=== PATIENT | female | born 1990 ===

== ENCOUNTER 2018-02-27 12:53 | Emergency (ER) | payer SELFPAY ==
[2018-02-27 13:50] VITALS: RESP 18; TEMP 97.7; O2SAT 100
--- NOTE | 2018-02-27 14:13 | ED PDOC ---
HPI: Female Pain Time Seen by Provider: 02/27/18 13:55 Chief Complaint (Nursing): Female Genitourinary Chief Complaint (Provider): Vaginal spotting History Per: Patient History/Exam Limitations: no limitations Current Symptoms Are (Timing): Still Present Quality Of Discomfort: "Pain" Additional History Per: Patient Additional Complaint(s): 28yo female, EGA of 17weeks, presents to ED with complaints of left lower quadrant abdominal pain and vaginal spotting since this morning. She also reports since last night, she has not "felt the baby move.' She has associated dysuria but denies any fever, chills, vomiting or diarrhea. She offers no other medical complaints. PMD: [facility] Abnormal Vaginal Bleeding: Yes Past Medical History Reviewed: Historical Data, Nursing Documentation, Vital Signs Vital Signs: Last Vital Signs Temp 97.7 F 02/27/18 13:49 Pulse 84 02/27/18 13:49 Resp 18 02/27/18 13:49 BP 108/66 02/27/18 13:49 Pulse Ox 100 02/27/18 13:49 - Medical History PMH: No Chronic Diseases - Surgical History Surgical History: No Surg Hx - Family History Family History: States: No Known Family Hx - Social History Current smoker - smoking cessation education provided: No Alcohol: None Drugs: Denies - Allergies Allergies/Adverse Reactions: Allergies Allergy/AdvReac Type Severity Reaction Status Date / Time No Known Allergies Allergy Verified 02/27/18 13:49 Review of Systems ROS Statement: Except As Marked, All Systems Reviewed And Found Negative Constitutional: Negative for: Fever, Chills Gastrointestinal: Positive for: Abdominal Pain. Negative for: Nausea, Vomiting Genitourinary Female: Positive for: Dysuria, Vaginal Bleeding (spotting) Physical Exam - Reviewed Nursing Documentation Reviewed: Yes Vital Signs Reviewed: Yes - Physical Exam Appears: Positive for: Non-toxic, No Acute Distress Head Exam: Positive for: ATRAUMATIC, NORMAL INSPECTION, NORMOCEPHALIC Skin: Positive for: Normal Color Eye Exam: Positive for: Normal appearance Neck: Positive for: Supple Cardiovascular/Chest: Positive for: Regular Rate, Rhythm Respiratory: Positive for: Normal Breath Sounds Gastrointestinal/Abdominal: Positive for: Soft, Tenderness (mild left lower quadrant tenderness), Other (fundus palpated 2 finger breadths below the umbilicus.) Back: Positive for: Normal Inspection. Negative for: L CVA Tenderness, R CVA Tenderness Neurologic/Psych: Positive for: Alert, Oriented. Negative for: Motor/Sensory Deficits - Laboratory Results Result Diagrams: 02/27/18 14:50 02/27/18 14:50 - ECG O2 Sat by Pulse Oximetry: 100 (RA) Pulse Ox Interpretation: Normal Medical Decision Making Medical Decision Making: Impression: Vaginal spotting in Plan: -- Labs -- Urinalysis -- US OB Scribe Attestation: Documented by Tracey Lucas, acting as a scribe for Valentin Rogers MD. Provider Attestation: All medical record entries made by the Scribe were at my direction and personally dictated by me. I have reviewed the chart and agree that the record accurately reflects my personal performance of the history, physical exam, medical decision making, and the department course for this patient. I have also personally directed, reviewed, and agree with the discharge instructions and disposition. Disposition - Clinical Impression Clinical Impression: Threatened miscarriage - Patient ED Disposition Is Patient to be Admitted: No Counseled Patient/Family Regarding: Studies Performed, Diagnosis, Need For Followup - Disposition [facility]errals[facility]Outside] Disposition: Routine/Home Disposition Time: 16:45 Condition: FAIR Instructions: Threatened Miscarriage Forms: [facility] (Kyrgyz) Print Language: [place]
[2018-02-27 14:58] LABS: BASO % 0.3 % (0.0-2.0); EOS # 0.3 K/uL (0.0-0.7); EOS % 2.4 % (0.0-4.0); HEMOGLOBIN 11.8 g/dL (12.0-16.0); LYMPH # 2.4 K/uL (1.0-4.3); LYMPH % 17.2 % (20.0-40.0); MEAN CELL VOLUME 87.5 fl (81.0-99.0); MEAN CORPUSCULAR HEMOGLOBIN 30.5 pg (27.0-31.0); MEAN CORPUSCULAR HGB CONC 34.9 g/dL (33.0-37.0); MEAN PLATELET VOLUME 8.4 fl (7.2-11.7); MONO # 0.8 K/uL (0.0-0.8); NEUT # 10.4 K/uL (1.8-7.0); NEUT % 74.1 % (50.0-75.0); NRBC % 0.1 % (0.0-0.0); RBC 3.87 Mil/uL (3.80-5.20); RED CELL DISTRIBUTION WIDTH 13.6 % (11.5-14.5)
[2018-02-27 15:08] LABS: ALB/GLOB RATIO 1.1 (1.0-2.1); ALBUMIN 3.7 g/dL (3.5-5.0); ALT/SGPT 42 U/L (9-52); AST/SGOT 30 U/L (14-36); BLOOD UREA NITROGEN 6 mg/dl (7-17); CALCIUM 8.9 mg/dL (8.4-10.2); GFR AFRICAN-AMERICAN > 60; GFR NON-AFRICAN AMERICAN > 60
--- NOTE | 2018-02-27 16:43 | US ---
PROCEDURE: Second trimester ultrasound HISTORY: left sided pain, vag bleeding COMPARISON: None available. TECHNIQUE: Standard protocol for this study/examination. FINDINGS: Cephalic presentation. Fundal Placenta. No evidence of abruption or previa Gestational age derived from LMP 17 weeks 1 day. JO-ANN 08/06/2018. Gestational age derived from the following biometric parameters 17 weeks 5 days. JO-ANN 08/02/2018. Biparietal diameter 4.06 cm Head circumference 15.26 cm Abdominal circumference 11.66 cm Femur length 2.22 cm Estimated weight 184.9 g Calculated cardiac rate 145 beats per min. Closed cervix measuring 3.40 cm IMPRESSION: 17 weeks 5 days live intrauterine gestation. Gestational concordance documented. No acute findings identified open
[2018-02-27 19:22] VITALS: BP 110/69; PULSE 78
== END 2018-02-27 17:30 | disposition home or self-care (01) ==
LOC: H.ER 12:53
DX: O20.0 Threatened abortion (principal); Z36.9 Encounter for antenatal screening, unspecified; Z3A.17 17 weeks gestation of pregnancy

== ENCOUNTER 2018-08-10 22:01 | Emergency (ER) | payer SELFPAY ==
[2018-08-11 05:30] VITALS: BP 136/117; PULSE 73
--- NOTE | 2018-08-11 09:13 | OBHP ---
Datetime: 08/10/2018 23:27 IP Adm Impression: Term, intrauterine IP Admit Plan: Observation/Evaluation; Discharge home Admit Comment, IP Provider: 28 y/o at 40.4 w/JO-ANN 08/06/2018, LMP 10/30/2017 is here c/o some dr ipping of fluid since 730am this morning. She states she had an ultrasound today and was told everyth ing was ok but if fluid loss continued to come to ED. Dwaine vb, ctx, and endorses +FM. Denies f/c/n/v /d. PNP at [facility]. OBGYNhx: had vb @ about 34 wks PMH: Denies Allergies: Denies Meds: PNV Famhx: mother- heart valve problems Sochx: Denies EtoH, cigarette or elicit drug use Surghx: Denies PE: A _ O x 3 Cardio: s1s2 Lungs: cta b/l Abd: Gravid, BS+, nontender Pelvic: sterile speculum- no fluid noted; fingertip dilated Ext: calves nontender A/P: 28 y/o at 40.4 here c/o some dripping of fluid since 730am this morning. -ROM was ruled out -Will return tomorrow for schduled induction -Labor precautions given -Patient seen and examined with Dr. Sunshine -Mikayla Schmitt, PGY-1 Addendum: I saw and examined patient at presentation. No evidence of rupture of membranes at this time. HOME 7-8 on bedside ultrasound. heart tracing category 1. Patient scheduled for induction of labor t omorrow. Discussed plan with patient and all patient questions answered via pricing specialist. Patient disch arged home and will return to labor and delivery tomorrow for induction of labor as already scheduled . Bita Extremities - PN: Normal Abdomen - PN: Normal Lungs - PN: Normal Heart - PN: Normal HEENT - PN: Normal General - PN: Normal Gestation - Est Wks by US: 40.4 Pool Provider: Positive IP Hx Assessment: The History has been Reviewed and is Current Vital Signs Provider: Reviewed IP Chief Complaint: Maternal discomfort NICHD Variability Prov Fetus A: Moderate 6-25bpm NICHD Accel Fetus A IP Provider: [id number] FHR Category Provider Fetus A: Category I NICHD Decel Fetus A IP Provider: None
== END 2018-08-10 23:15 | disposition home or self-care (01) ==
LOC: H.EROB2 22:01
DX: O34.63 Maternal care for abnormality of vagina, third trimester (principal); N89.8 Other specified noninflammatory disorders of vagina; Z3A.40 40 weeks gestation of pregnancy; O48.0 Post-term pregnancy

== ENCOUNTER 2018-08-11 19:55 | Inpatient (IN) | payer MEDICAID, SELFPAY ==
[2018-08-11 20:57] VITALS: BMI 25.0
[2018-08-11] MEDS ORDERED: Lactated Ringer's 1,000 ML IV ONE ×2 (21:31→21:32)
[2018-08-11 21:36] LABS: BASO % 0.3 % (0.0-2.0); EOS # 0.5 K/uL (0.0-0.7); HEMOGLOBIN 12.1 g/dL (12.0-16.0); LYMPH # 2.1 K/uL (1.0-4.3); LYMPH % 15.5 % (20.0-40.0); MEAN CELL VOLUME 85.7 fl (81.0-99.0); MEAN CORPUSCULAR HEMOGLOBIN 27.6 pg (27.0-31.0); MEAN CORPUSCULAR HGB CONC 32.3 g/dL (33.0-37.0); MEAN PLATELET VOLUME 8.8 fl (7.2-11.7); MONO # 1.2 K/uL (0.0-0.8); MONO % 9.1 % (0.0-10.0); NEUT # 9.5 K/uL (1.8-7.0); NEUT % 71.1 % (50.0-75.0); RBC 4.38 Mil/uL (3.80-5.20); RED CELL DISTRIBUTION WIDTH 14.3 % (11.5-14.5); WHITE BLOOD COUNT 13.3 K/uL (4.8-10.8)
--- NOTE | 2018-08-12 01:35 | OBADHP ---
Datetime: 08/11/2018 21:13 Admit Comment, IP Provider: 28 y/o @40.5 wks w/JO-ANN 07/27/2018 _ LMP 10/30/2017 here for inductio n of labor due to low HOME. Patient endorses +FM, but denied any vb, ctx, loss of fluid, f/c/n/v/ _ d ysuria. OBGYNHX: 1 , 12 yrs ago PMH: denied Allergies: denies Meds: PNV Sochx: denies EtOH, Cigarette or elicit drug use Surghx: denies ROS: 12 points reviewed _ neg unless othwerwise mentioned in HPI VS: stable Gen: well appearing female, no grimacing, no acute distress Cardio: s1s2, RRR Lungs: cta b/l Abd: gravid, BS+, nontender Ext: nonedematous A/P: 28 y/o @40.5 wks w/JO-ANN 07/27/2018 here for induction of labor. -Admit with initiation of induction protocol Patient seen and examined with Dr. Trinidad -Mikayla Schmitt, , PGY-[address] Trinidad: I Have evalauted the patient independently and I agree with the above Abdomen - PN: Normal Back - PN: Normal Lungs - PN: Normal Heart - PN: Normal IP Hx Assessment: The History has been Reviewed and is Current Vital Signs Provider: Reviewed IP Adm Impression: Term, intrauterine IP Admit Plan: Admit to unit; Initiate labor induction protocol Datetime: 08/10/2018 23:27 Extremities - PN: Normal HEENT - PN: Normal General - PN: Normal Gestation - Est Wks by US: 40.4 Pool Provider: Positive IP Chief Complaint: Maternal discomfort NICHD Variability Prov Fetus A: Moderate 6-25bpm NICHD Accel Fetus A IP Provider: [id number] FHR Category Provider Fetus A: Category I NICHD Decel Fetus A IP Provider: None
[2018-08-12] MEDS ORDERED: Fentanyl/Bupivacaine HCl 250 ML EPI ONE (09:29)
[2018-08-12] MEDS ORDERED: Oxytocin 30 UNIT 30 UNITS/500 ML BAG IV ONE ×2 (13:07→18:34)
[2018-08-12] MEDS ORDERED: Lidocaine 1% Inj (20ml) ONE (13:08)
[2018-08-12] MEDS ORDERED: Oxycodone/Acetaminophen 5/325 mg Tab PO PRN ×2 (18:34→21:04)
[2018-08-12] MEDS ORDERED: OXYTOCIN/0.9 % NS 20 UNIT/1,000 ML BAG IV ONE (18:34)
[2018-08-12] MEDS ORDERED: Benzocaine/Menthol SPRAY TOP PRN ×2 (18:34→21:04)
--- NOTE | 2018-08-12 18:53 | OBDS ---
DELIVERY PERSONNEL Delivery Doctor: Anson Portillo MD Photo Lab Technician: Zo Galvan RN Resident: MD pilar MATERNAL INFORMATION Delivery Anesthesia: Epidural Medications in Delivery: pitocin Estimated Blood Loss (ml): 200 Placenta Cultured: No Maternal Complications: None Provider Comments: Delivered live baby girl at 6:26 PM the baby was bulb suctioned on the perineum a nd transferred maternal chest. The cord was clamped and cut 3 vessels noted cord blood was obtained a nd sent to lab. The placenta was delivered at 6:28 PM intact, the estimated blood loss was 100 mL. Th ere were no vaginal lacerations the mother tolerated the procedure well the baby went to the well-bab nursery with Apgars of 9 and 9 LABOR SUMMARY EDC: 08/06/2018 00:00 No. Babies in Womb: 1 Attempted: No Labor Anesthesia: Epidural LABOR INFORMATION Reason for Induction: Not Applicable Onset of Labor: 08/12/2018 04:00 Complete Dilatation: 08/12/2018 18:00 Cervical Ripening Agents: Cervidil (Annotations: Cervidil inserted by Dr. Schmitt and Dr. Alatorre ) Oxytocin: Induction Group B Beta Strep: Negative Antibiotics # of Doses: 0 Steroids Given: None Reason Steroids Not Administered: Not Applicable Other Reason Not Administered: Nopt required MEMBRANES Membranes Rupture Method: Spontaneous Rupture of Membranes: 08/12/2018 09:05 Length of Rupture (hrs): 9.35 Amniotic Fluid Color: Clear Amniotic Fluid Amount: Small Amniotic Fluid Odor: Normal STAGES OF LABOR Stage 1 hrs: 14 Stage 1 min: 0 Stage 2 hrs: 0 Stage 2 min: 26 Stage 3 hrs: 0 Stage 3 min: 2 Total Time in Labor hrs: 14 Total Time in Labor min: 28 VAGINAL DELIVERY Episiotomy: None Laceration Extension: N/A Laceration Type: None Laceration Repair: No Initial Vag Sponge Count: 5 Final Vag Sponge Count: 5 Initial Vag Sharps Count: 0 Final Vag Sharps Count: 0 Sponge Count Correct: Yes Sharps Count Correct: N/A BABY A INFORMATION Infant Delivery Date/Time: 08/12/2018 18:26 Method of Delivery: Vaginal Born in Route : No : N/A Forceps: N/A Vacuum Extraction: N/A Shoulder Dystocia : Yes SHOULDER DYSTOCIA BABY A Infant Delivery Date/Time: 08/12/2018 18:26 PRESENTATION/POSITION BABY A Presentation: Cephalic Cephalic Presentation: Vertex Vertex Position: Left Occipital Anterior Breech Presentation: N/A PLACENTA INFORMATION BABY A Placenta Delivery Time : 08/12/2018 18:28 Placenta Method of Delivery: Spontaneous Placenta Status: Delivered SCORES BABY A Heart Rate 1 min: >100 bpm Resp Effort 1 min: Good Cry Reflex Irritability 1 min: Cough or Sneeze or Pulls Away Muscle Tone 1 min: Active Motion Color 1 min: Body Black, Extremities Blue Resuscitation Effort 1 min: N/A SCORE 1 MIN: 9 Heart Rate 5 min: >100 bpm Resp Effort 5 min: Good Cry Reflex Irritability 5 min: Cough or Sneeze or Pulls Away Muscle Tone 5 min: Active Motion Color 5 min: Body Black, Extremities Blue Resuscitation Effort 5 min: N/A SCORE 5 MIN: 9 INFANT INFORMATION BABY A Gestational Age at Delivery: 40.0 Gestational Status: Term Outcome : Liveborn Infant Condition : Stable Sex: Female IDENTIFICATION/MEDS BABY A ID Band Number: [id number] ID Band Location: Right Leg; Right Arm WEIGHT/LENGTH BABY A Infant Birthweight (gms): 3510 Infant Weight (lb): 7 Infant Weight (oz): 12 CORD INFORMATION BABY A No. Cord Vessels: 3 Nuchal Cord : N/A Cord Blood Taken: No Suction: Mouth; Nose ASSESSMENT BABY A Complications: None Physical Findings at Delivery: Within Normal Limits Respirations: Appears Normal Online Marketing Specialist/ALS Called : No Care By: Dr Rogel Transferred To: Remains with Mother
[2018-08-13 09:34] LABS: BASO % 0.2 % (0.0-2.0); EOS # 0.1 K/uL (0.0-0.7); EOS % 0.3 % (0.0-4.0); HEMOGLOBIN 11.4 g/dL (12.0-16.0); LYMPH # 1.9 K/uL (1.0-4.3); LYMPH % 10.1 % (20.0-40.0); MEAN CELL VOLUME 85.5 fl (81.0-99.0); MEAN CORPUSCULAR HEMOGLOBIN 27.8 pg (27.0-31.0); MEAN CORPUSCULAR HGB CONC 32.5 g/dL (33.0-37.0); MEAN PLATELET VOLUME 9.1 fl (7.2-11.7); MONO # 1.2 K/uL (0.0-0.8); MONO % 6.5 % (0.0-10.0); NEUT # 15.6 K/uL (1.8-7.0); NEUT % 82.9 % (50.0-75.0); RBC 4.09 Mil/uL (3.80-5.20); RED CELL DISTRIBUTION WIDTH 14.6 % (11.5-14.5); WHITE BLOOD COUNT 18.9 K/uL (4.8-10.8)
--- NOTE | 2018-08-13 10:44 | OBPPN ---
Datetime: 08/13/2018 06:44 PP Pain Prov: Within normal limits PP Nausea Prov: Denies PP Flatus Prov: Yes PP BM Prov: No PP Breasts Prov: Not Done PP Heart Prov: Normal PP Lungs Prov: Normal PP Abdomen/Uterus Prov: Normal PP Lochia Prov: Normal PP Vulva/Perineum Prov: Not Done PP CVA Tenderness Prov: Not Done PP Extremities Prov: Normal PP C/S Incision Prov: Not Applicable PP Progress Prov: Normal PP Impression Prov: Normal progression PP Plan Prov: Continue present management PP Progress Note Prov: Interp: [id number] PPD1 S: 28 yo delivered via at 40.5wks on 08/12/18. Seen and examined at bedside. Patient h ad an uneventful overnight, feels well. Pt reports mild pelvic pain controlled with pain meds. Ambula ting well without dizziness. Trying to Breast and Bottle feed, hasn't produced milk yet. Tolerating P O diet well. Lochia light. Voiding freely with no blood noted, No Bowel movement yet but passing gas per rectum. Denies dizziness, fever/chills, nausea, vomiting diarrhea, constipation, CP, SOB or calf pain. PHYSICAL EXAM: GEN: Resting comfortably in bed, NAD HEENT: White sclera, pink conjunctiva, oral mucosa moist. LUNGS: CTA B/L, no wheezing, rhonchi, or rales CVS: RRR, S1,S2, no murmurs Abdomen: soft non tender to palpation, Uterus firm @ UB, + BS EXT: No edema, calves nontender Assessment: 28 yo delivered via at 40.5wks on 08/12/18, Doing well PPD 1 Plan: OOB with caution Ibuprofen 600 mg 1 tab q/ 6 hrs po if mild pain. Encouraged Continue vitamin Anticipate discharge to home tomorrow F/U in 1 week for [place] visit and 6 weeks for post- visit at [facility]-Emailed lucita Case reviewed and discussed with attending Susana Santo M.D. PGY-[address] griffith: I have evaluated the patient independently and I agree with the above IP PP Procedures: None Vital Signs Provider PP: Reviewed; Within Normal Limits
[2018-08-14] MEDS ORDERED: Prenatal Multivit/Folic Acid/Iron Tab PO SCH (09:00)
--- NOTE | 2018-08-14 10:16 | OBPPN ---
Datetime: 08/14/2018 07:08 PP Pain Prov: Within normal limits PP Nausea Prov: Denies PP Flatus Prov: Yes PP BM Prov: Yes PP Heart Prov: Normal PP Lungs Prov: Normal PP Abdomen/Uterus Prov: Normal PP Lochia Prov: Normal PP Extremities Prov: Normal PP Impression Prov: Normal progression PP Plan Prov: Continue present management; Discharge PP Progress Note Prov: 28 y/o PPD2 s/p 08/12 @ 18:26 was seen and examined this AM. No a dverse events overnight. Lochia like menses, voiding w/o complaints, tolerating regular diet, +flatus , + BM, breast/bottle feeding. Denies any f/c/n/v/diarrhea. VS: stable Gen: sitting up in bed Cardio: s1s2 , RRR Lungs: cta b/l Abd: BS +, appropriate tenderness Ext: nonedematous A/P: 28 y/o PPD2 s/p 1. Encouraged . 2. Ibuprofen as needed for pain. 3. Ambulation encouraged. 4. Discharge home today. Patient seen and evaluated by me this am. Agree with above note. Patient to rtc for zacarias luation in 6 weeks. Continue pelvic rest until seen in clinic. Rx given for Ibuprofen for pain. --Dr. Berg Vital Signs Provider PP: Reviewed; Within Normal Limits
--- NOTE | 2018-08-14 10:19 | OBDCSUM ---
Datetime: 08/14/2018 07:13 Discharged to, Provider: Home Follow up at, Provider: your doctor Disch Instr Activity: May be up to bathroom; May be up for meals; May Shower Disch Instr Diet: Regular Discharge Instructions, Provider: Routine instructions given Discharge Diagnosis, Provider: Term Delivered Follow up in weeks, Provider: 4-6 weeks Disch Referrals: None Contraception discussed, Prov: Yes Discharge Comment, Provider: 1. Follow up with your doctor in 4-6 weeks 2. No lifting, minimize stairs, nothing in vagina (no sex, no tampons) 3. Please take your to see car seat upholsterer in 3-5 days. 4. If you develop increased vaginal bleeding, fever or increased pain, please go ED. Contraception after Delivery: Undecided
[2018-08-15 01:05] VITALS: BP 107/62; PULSE 95; RESP 20; TEMP 97.7; O2SAT 99
== END 2018-08-14 13:11 | disposition home or self-care (01) | DRG 807 ==
LOC: H.EROB2 19:55 → H.L&D 20:57 → H.OB/GYN 08-12 20:58
PROVIDERS: ADMIT Obstetrics & Gynecology; ATTEND Obstetrics & Gynecology
PROC: 4A1HXCZ Monitoring of Products of Conception, Cardiac Rate, External Approach (ICD-10-PCS; 2018-08-11)
PROC: 10E0XZZ Delivery of Products of Conception, External Approach (ICD-10-PCS; principal; 2018-08-12)
DX: O48.0 Post-term pregnancy (principal); O77.0 Labor and delivery complicated by meconium in amniotic fluid; O66.0 Obstructed labor due to shoulder dystocia; Z37.0 Single live birth; Z3A.40 40 weeks gestation of pregnancy